=== PATIENT | female | born 1980 | race Caucasian/White ===

== ENCOUNTER 2017-03-07 19:21 | Emergency (ER) | payer MEDICAID ==
[2017-03-07 20:24] VITALS: BP 146/87
--- NOTE | 2017-03-07 20:37 | EDM.PDOC ---
[id number] THROAT Time Seen by Provider: 03/07/17 20:30 Source of Information: Reports: Patient, RN Notes Reviewed History Limitations: Reports: No Limitations - History of Present Illness INITIAL COMMENTS - FREE TEXT/NARRATIVE: Drove self here Chief complaint: Sore throat, worried about strep HPI onset of sore throat yesterday in this 36-year-old female who has children, works full-time in the [employer] office, does computer and phone work. Hurts to swallow and hurts to talk No fever No cough or breathing difficulty No ear pain and no nasal congestion or coryza. None of her children have strep or sore throat currently throat Pain Score (Numeric/FACES): 3 - Related Data Allergies Allergy/AdvReac Type Severity Reaction Status Date / Time amoxicillin [Amoxicillin] Allergy Hives Verified 03/07/17 20:28 azithromycin Allergy Hives Verified 03/07/17 20:28 Home Meds: Home Meds NK [No Known Home Meds] 12/06/13 [History] Past Medical History - History Comment History Comment: Noncontributory Social & Family History - Tobacco Use Years of Tobacco use: 3 ED ROS ENT - Review of Systems Review Of Systems: See Below Constitutional: Denies: Fever, Chills, Weakness HEENT: Reports: Throat Pain. Denies: Ear Pain, Eye Discharge, Eye Pain, Rhinitis, Vision Change Respiratory: Denies: Shortness of Breath, Cough Cardiovascular: Denies: Chest Pain ED EXAM, ENT - Physical Exam Exam: See Below Exam Limited By: No Limitations General Appearance: Alert, Mild Distress Eye Exam: Bilateral Eye: Normal Inspection Ears: Normal External Exam, Normal Canal, Hearing Grossly Normal, Normal TMs Nose: Normal Inspection, Normal Mucousa Mouth/Throat: Normal Lips, Normal Teeth, Hoarse Voice, Pharyngeal Erythema, Throat Swelling, Tonsillar Erythema, Tonsillar Exudates Head: Atraumatic Neck: Supple, Non-Tender. No: Lymphadenopathy (R), Lymphadenopathy (L) Respiratory/Chest: No Respiratory Distress, No Accessory Muscle Use Cardiovascular: Normal Peripheral Pulses, Regular Rate, Rhythm Skin: Warm, Dry Lymphatic: No Adenopathy Course - Vital Signs Last Recorded V/S: Last Vital Signs Temp 37.1 C 03/07/17 20:24 Pulse 98 03/07/17 20:24 Resp 16 03/07/17 20:24 BP 146/87 H 03/07/17 20:24 Pulse Ox 95 03/07/17 20:24 - Orders/Labs/Meds Orders: Active Orders 24 hr Category Date Time Status Orthopedic Treatments [RC] ASDIRECTED Care 03/07/17 20:42 Inactive CULTURE STREP A CONFIRMATION [RM] Stat Lab 03/07/17 20:58 Results STREP SCRN A RAPID W CULT CONF [RM] Stat Lab 03/07/17 20:58 Results - Re-Assessments/Exams Free Text/Narrative Re-Assessment/Exam: 03/07/17 21:04 36-year-old female with sore throat hoarse voice. She does have swollen tonsils with some exudate. Scores 3 by [facility] criteria Strep test done by nurse 03/07/17 21:49 Strep screen negative, culture pending Symptomatic treatment Departure - Departure Time of Disposition: 21:48 Disposition: Home, Self-Care 01 Condition: good Clinical Impression: Acute viral tonsillitis - Discharge Information Instructions: Tonsillitis Referrals: PCP,None [Primary Care Provider] - Forms: ED Department Discharge Additional Instructions: Treatment with throat lozenges Pain medicine such as acetaminophen and ibuprofen or naproxen Strep rapid test was negative "culture, blood culture is pending and you'll be notified within the next 2 days if culture indicates that you do have strep throat Get rechecked if worsening although the infection can last a week or more Rest voice as much as possible - My Orders Last 24 Hours: My Active Orders 03/07/17 20:42 Orthopedic Treatments [RC] ASDIRECTED 03/07/17 20:58 CULTURE STREP A CONFIRMATION [RM] Stat STREP SCRN A RAPID W CULT CONF [RM] Stat - Assessment/Plan Last 24 Hours: My Active Orders 03/07/17 20:42 Orthopedic Treatments [RC] ASDIRECTED 03/07/17 20:58 CULTURE STREP A CONFIRMATION [RM] Stat STREP SCRN A RAPID W CULT CONF [RM] Stat
== END 2017-03-07 21:55 | disposition home or self-care (01) ==
LOC: JP.ED 19:21
DX: J03.80 Acute tonsillitis due to other specified organisms (principal); Z88.1 Allergy status to other antibiotic agents
CPT/HCPCS: 87081; 87430; 99282; 99283

== ENCOUNTER 2019-12-01 19:15 | Emergency (ER) | payer MEDICAID ==
[2019-12-01 19:39] VITALS: BP 123/62; PULSE 86
--- NOTE | 2019-12-01 19:48 | EDM.PDOC ---
ED HPI GENERAL MEDICAL PROBLEM - General Chief Complaint: Upper Extremity Injury/Pain Stated Complaint: FELL HURT WRIST Time Seen by Provider: 12/01/19 19:35 Source of Information: Reports: Patient History Limitations: Reports: No Limitations - History of Present Illness INITIAL COMMENTS - FREE TEXT/NARRATIVE: 39-year-old female slipped on the ice yesterday landing on her left wrist. Intense pain in the wrist with extension of pain down the fourth and fifth fingers and limited range of motion. No other injury. 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: Neurological History: Reports: Migraines Psychiatric History: Reports: Depression Endocrine/Metabolic History: Reports: Diabetes, Gestational - Infectious Disease History Infectious Disease History: Reports: Chicken Pox - Past Surgical History GI Surgical History: Reports: Cholecystectomy Female Surgical History: Reports: Section Endocrine Surgical History: Reports: None Neurological Surgical History: Reports: Other (See Below) Other Neurological Surgeries/Procedures: back surgery Musculoskeletal Surgical History: Reports: Other (See Below) Other Musculoskeletal Surgeries/Procedures:: ACL surgery and meniscous surgery right knee - History Comment History Comment: Noncontributory Social & Family History - Family History Family Medical History: Noncontributory - Tobacco Use Smoking Status *Q: Never Smoker - Caffeine Use Caffeine Use: Reports: None - Recreational Drug Use Recreational Drug Use: No Review of Systems - Review of Systems Review Of Systems: See Below Constitutional: Denies: Fever Respiratory: Reports: No Symptoms Cardiovascular: Reports: No Symptoms Musculoskeletal: Reports: Other (Left wrist pain only) Skin: Denies: Bruising ED EXAM, GENERAL - Physical Exam Exam: See Below Exam Limited By: No Limitations General Appearance: Alert, No Apparent Distress Head: Atraumatic Respiratory/Chest: No Respiratory Distress Extremities: Other (Exam is otherwise limited to the left arm. She has no tenderness around the clavicle shoulder or elbow. There is palpation tenderness and slight swelling around the ulnar and radial aspect of the wrist without deformity or bruising) Course - Vital Signs Last Recorded V/S: Last Vital Signs Temp 96 F L 12/01/19 19:35 Pulse 86 12/01/19 19:35 Resp 15 12/01/19 19:35 BP 123/62 12/01/19 19:35 Pulse Ox 96 12/01/19 19:35 - Orders/Labs/Meds Orders: Active Orders 24 hr Category Date Time Status Wrist Comp Min 3V Lt [CR] Stat Exams 12/01/19 19:44 Taken - Re-Assessments/Exams Free Text/Narrative Re-Assessment/Exam: 12/01/19 19:48 A left wrist x-ray was obtained. 12/01/19 21:32 Left wrist x-ray shows a small step-off of the radial surface but no definite fracture. This was followed with a CT of the wrist which was read as negative. An Gregory wrap was applied to the wrist and she was discharged with a wrist contusion diagnosis. Departure - Departure Time of Disposition: 21:21 Disposition: Home, Self-Care 01 Clinical Impression: Contusion of left wrist, initial encounter - Discharge Information Instructions: Contusion Referrals: Shanika Estrada CNM [Primary Care Provider] - Forms: ED Department Discharge Care Plan Goals: Wrap for comfort, ibuprofen will help and increase activity as tolerated. Recheck next week if not improving satisfactorily after 3 to 5 days. Sepsis Event Note - Evaluation Sepsis Screening Result: No Definite Risk - Focused Exam Vital Signs: Vital Signs Temp Pulse Resp BP Pulse Ox 12/01/19 19:35 96 F L 86 15 123/62 96 Date Exam was Performed: 12/01/19 Time Exam was Performed: 21:32 - My Orders Last 24 Hours: My Active Orders 12/01/19 19:44 Wrist Comp Min 3V Lt [CR] Stat - Assessment/Plan Last 24 Hours: My Active Orders 12/01/19 19:44 Wrist Comp Min 3V Lt [CR] Stat
--- NOTE | 2019-12-01 21:11 | CRLCT ---
INDICATION: Evaluate for fracture. COMPARISON: Left wrist series dated 01 December 2019. TECHNIQUE: Noncontrast CT scan of the left wrist with re-formatted images obtained. FINDINGS: No evidence of acute fracture or dislocation. No muscular or tendinous abnormalities. No other bony or soft tissue abnormalities identified. IMPRESSION: No evidence of acute fracture or dislocation of the left wrist. Dictated by Brian Zavala MD @ 12/01/2019 9:08:33 PM Please note that all CT scans at this facility use dose modulation, iterative reconstruction, and/or weight-based dosing when appropriate to reduce radiation dose to as low as reasonably achievable. Dictated by: Brian Zavala MD @ 12/01/2019 21:08:40 (Electronically Signed)
--- NOTE | 2019-12-02 12:05 | CR ---
Wrist Comp Min 3V Lt CLINICAL HISTORY: Fall, pain FINDINGS: There is no acute fracture or dislocation within the left wrist. There is a lateral longitudinal lucency overlying the distal radius. This is a soft tissue fascial plain Impression: No fracture or dislocation
== END 2019-12-01 21:25 | disposition home or self-care (01) ==
LOC: JP.ED 19:15
DX: S60.212A Contusion of left wrist, initial encounter (principal); Z88.0 Allergy status to penicillin; Z88.1 Allergy status to other antibiotic agents; W01.0XXA Fall on same level from slipping, tripping and stumbling without subsequent striking against object, initial encounter
CPT/HCPCS: 73110-26-LT; 73110-LT; 73200-LT; 99282; 99284-25

== ENCOUNTER 2021-04-17 01:06 | Emergency (ER) | payer MEDICAID ==
[2021-04-17 01:36] VITALS: BP 181/93; PULSE 96
[2021-04-17] MEDS ORDERED: Proparacaine 0.5% Ophth Soln 15 ML Bottle EYELF ONE (01:49)
--- NOTE | 2021-04-17 02:13 | EDM.PDOC ---
ED HPI GENERAL MEDICAL PROBLEM - General Chief Complaint: ENT Problem Stated Complaint: SOMETHING IN LEFT EYE Time Seen by Provider: 04/17/21 01:49 Source of Information: Reports: Patient History Limitations: Reports: No Limitations - History of Present Illness INITIAL COMMENTS - FREE TEXT/NARRATIVE: Chica is a 40-year-old male presenting to the ED for evaluation of a painful, swollen left eye. The patient was in her usual state of health and [place] and got out around 1730 hrs. Around 2200 hrs. she started to develop eye pain and thought maybe she had an eyelash in her eye. She try to get it out, however, the pain continued to worsen to the point where she could not even open her eye. She called her friend who brought her into the ED for evaluation. Is any injury to the eye. Her vision is blurry in the eye. She is photosensitive. 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: Neurological History: Reports: Migraines Psychiatric History: Reports: Depression Endocrine/Metabolic History: Reports: Diabetes, Gestational, Obesity/BMI 30+ - Infectious Disease History Infectious Disease History: Reports: Chicken Pox - Past Surgical History GI Surgical History: Reports: Cholecystectomy Female Surgical History: Reports: Section Endocrine Surgical History: Reports: None Neurological Surgical History: Reports: Other (See Below) Other Neurological Surgeries/Procedures: back surgery Musculoskeletal Surgical History: Reports: Other (See Below) Other Musculoskeletal Surgeries/Procedures:: ACL surgery and meniscous surgery right knee - History Comment History Comment: Noncontributory Social & Family History - Family History Family Medical History: No Pertinent Family History - Tobacco Use Tobacco Use Status *Q: Never Tobacco User - Caffeine Use Caffeine Use: Reports: Coffee - Recreational Drug Use Recreational Drug Use: No ED ROS GENERAL - Review of Systems Review Of Systems: See Below Constitutional: Reports: No Symptoms HEENT: Reports: Eye Pain (Left eye pain, photosensitivityn), Vision Change (Blurred vision) Neurological: Reports: No Symptoms ED EXAM GENERAL W FULL EYE - Physical Exam Exam: See Below Exam Limited By: No Limitations General Appearance: Alert, Anxious, Moderate Distress Eye Exam: Left Eye: Other (Very significant chemosis of the left eye without evidence of foreign body.), Bilateral Eye: EOMI Eyelids: Bilateral: Normal Appearance Conjunctiva & Sclera: Left: Conjunctival Edema Cornea Exam: Left: Normal Appearance, Examined with Flourescein Extraocular Movements: Bilateral: Intact Pupils: Normal Accommodation Pupillary Size: Bilateral: 3 mm Pupillary Reaction: Bilateral: Brisk Neurological: Alert, Oriented, Normal Cognition, No Motor/Sensory Deficits Course - Vital Signs Last Recorded V/S: Last Vital Signs Temp 36.3 C 04/17/21 01:32 Pulse 96 04/17/21 01:32 Resp 18 04/17/21 01:32 BP 181/93 H 04/17/21 01:32 Pulse Ox 100 04/17/21 01:32 - Orders/Labs/Meds Orders: Active Orders 24 hr Category Date Time Status Ketotifen [Ketotifen 0.025% Ophth Soln] Med 04/17/21 02:15 Ordered 0.1 ml EYELF Q12H Meds: Medications Discontinued Medications Generic Name Dose Route Start Last Admin Trade Name Saul PRN Reason Stop Dose Admin Proparacaine HCl 0.1 ml 04/17/21 01:49 04/17/21 01:53 Proparacaine 0.5% Ophth Soln 15 Ml Bottle EYELF 04/17/21 01:50 1 drop ONETIME ONE Administration - Re-Assessments/Exams Free Text/Narrative Re-Assessment/Exam: 04/17/21 02:10 patient has significant chemosis in the left eye. The source of the irritant or allergen is unknown, however, the patient did swim [place] today approximately 5 hours prior to the onset of her symptoms. They was very painful and photosensitive. Fluorescein was instilled and did not show any evidence for corneal abrasion or erosion. The conjunctiva is normally injected but extremely edematous. My plan is to put the patient on Ketotifen 0.25% eyedrops with 1 drop in the left eye twice daily until the edema resolves. There was no evidence of foreign body under either of the lids. Anticipate that this will improve within 24 hours. If continued symptoms, she should follow-up with ophthalmology. Departure - Departure Time of Disposition: 02:13 Disposition: Home, Self-Care 01 Clinical Impression: Allergic conjunctivitis of left eye - Discharge Information Instructions: Allergic Conjunctivitis, Adult, [id number] Referrals: Shanika Estrada CNM [Primary Care Provider] - Care Plan Goals: We are going to put you on Ketotifen eyedrops to help reduce the inflammation in the eye. It is unknown what the offender is, however, if this recurs try to take note of what you are exposed to and see if there is a pattern that seems to trigger this. This is allergic reaction to something you are in contact with causing the swelling of the eye. If not improving I would recommend seeing an segment producer. If worsening turn to the ED for reevaluation. Sepsis Event Note (ED) - Evaluation Sepsis Screening Result: No Definite Risk - Focused Exam Vital Signs: Vital Signs Temp Pulse Resp BP Pulse Ox 04/17/21 01:32 36.3 C 96 18 181/93 H 100 - Problem List & Annotations (1) Allergic conjunctivitis of left eye SNOMED Code(s): 210538932 Code(s): H10.12 - ACUTE ATOPIC CONJUNCTIVITIS, LEFT EYE Status: Acute Priority: Medium Current Visit: Yes - Problem List Review Problem List Initiated/Reviewed/Updated: Yes - My Orders Last 24 Hours: My Active Orders 04/17/21 02:15 Ketotifen [Ketotifen 0.025% Ophth Soln] 0.1 ml EYELF Q12H - Assessment/Plan Last 24 Hours: My Active Orders 04/17/21 02:15 Ketotifen [Ketotifen 0.025% Ophth Soln] 0.1 ml EYELF Q12H
[2021-04-17] MEDS ORDERED: Ketotifen 0.025% Ophth Soln 5 ML Bottle EYELF SCH (02:15)
== END 2021-04-17 02:22 | disposition home or self-care (01) ==
LOC: JP.ED 01:06
DX: H10.12 Acute atopic conjunctivitis, left eye (principal); E66.9 Obesity, unspecified; Z68.43 Body mass index [BMI] 50.0-59.9, adult; Z88.0 Allergy status to penicillin; Z88.1 Allergy status to other antibiotic agents
CPT/HCPCS: 99283; A9270

== ENCOUNTER 2021-10-15 07:15 | Inpatient (IN) | payer MEDICAID ==
[2021-10-15] MEDS ORDERED: cefOXitin 2 GM Vial ONE (07:18)
[2021-10-15] MEDS ORDERED: Neostigmine Methylsulfate 1 MG/ML 5 ML Syringe ONE (07:28)
[2021-10-15] MEDS ORDERED: Ondansetron 4 MG/2 ML SDV ONE (07:28)
[2021-10-15] MEDS ORDERED: fentaNYL 250 MCG/5 ML SDV ONE ×3 (07:28→11:15)
[2021-10-15] MEDS ORDERED: Succinylcholine 200 MG/10 ML MDV ONE (07:28)
[2021-10-15] MEDS ORDERED: Propofol 200 MG/20 ML SDV ONE (07:28)
[2021-10-15] MEDS ORDERED: Rocuronium 50 MG/5 ML Vial ONE ×2 (07:28→11:39)
[2021-10-15] MEDS ORDERED: Dexamethasone 4 MG/ML SDV ONE (07:28)
[2021-10-15] MEDS ORDERED: Glycopyrrolate 0.2 MG/ML 5 ML MDV ONE (07:28)
[2021-10-15] MEDS ORDERED: Scopolamine 1.5 MG Transdermal Patch TOP ONE (08:45)
[2021-10-15] MEDS ORDERED: Acetaminophen 500 MG Tab PO ONE (08:45)
[2021-10-15] MEDS ORDERED: Celecoxib 200 MG Cap PO ONE (08:45)
[2021-10-15] MEDS ORDERED: Dextrose 5%-Lactated Ringers 1,000 ML IV SCH (09:00)
[2021-10-15 09:28] LABS: HEMOGLOBIN A1C 6.8 % (4.5-6.2)
[2021-10-15] MEDS ORDERED: cefOXitin 2 GM in Sodium Chloride 0.9% 50 ML IV ONE (10:00)
[2021-10-15] MEDS ORDERED: Ketamine 500 MG/5 ML MDV IV SCH (10:15)
[2021-10-15] MEDS ORDERED: Ketamine 20 MG in Sodium Chloride 0.9% 19.8 ML IV SCH (10:15)
[2021-10-15] MEDS ORDERED: Labetalol 20 MG/4 ML Syringe ONE (11:38)
[2021-10-15] MEDS ORDERED: Naloxone 0.4 MG/ML SDV ONE (13:35)
[2021-10-15] MEDS ORDERED: Sugammadex Sodium 200 MG/2 ML VIAL ONE (13:36)
[2021-10-15] MEDS ORDERED: hydrOXYzine HCL 100 MG/2 ML SDV IM ONE (13:49)
[2021-10-15] MEDS ORDERED: Glucagon,Human Recombinant 1 MG Vial IM PRN (13:50)
[2021-10-15] MEDS ORDERED: 50% Dextrose in Water 50 ML Syringe IVPUSH PRN (13:50)
[2021-10-15] MEDS ORDERED: Ondansetron 4 MG/2 ML SDV IVPUSH ONE (13:50)
[2021-10-15] MEDS ORDERED: Insulin Lispro 100 Unit/ML 3 ML KwikPen SUBCUT ONE (14:15)
[2021-10-15] MEDS ORDERED: Cyclobenzaprine 10 MG Tab PO PRN (14:55)
[2021-10-15] MEDS ORDERED: hydrOXYzine HCL 100 MG/2 ML SDV IM PRN (15:00)
[2021-10-15] MEDS ORDERED: Labetalol 20 MG/4 ML Syringe IVPUSH PRN (15:00)
[2021-10-15] MEDS ORDERED: HYDROmorphone 0.5 MG/0.5 ML Syringe IVPUSH PRN (15:00)
[2021-10-15] MEDS ORDERED: oxyCODONE 5 MG Tab PO PRN (15:00)
[2021-10-15] MEDS ORDERED: Lactated Ringers 1,000 ML IV SCH (15:00)
[2021-10-15] MEDS ORDERED: HYDROmorphone 1 MG/ML Syringe IV PRN (15:00)
[2021-10-15] MEDS ORDERED: diphenhydrAMINE 50 MG/ML SDV IVPUSH PRN (15:00)
[2021-10-15] MEDS ORDERED: Acetaminophen 500 MG Tab PO PRN (15:00)
[2021-10-15] MEDS ORDERED: traMADol 50 MG Tab PO PRN (15:00)
[2021-10-15] MEDS: Metoclopramide 10 MG/2 ML SDV IVPUSH PRN (15:03)
[2021-10-15] MEDS: MVI, Adult with Vitamin K 10 ML, Thiamine 200 MG, Zinc/Copper/Manganese/Selenium 1 ML i... IV SCH ×4 (16:37)
[2021-10-15] MEDS: Pantoprazole 40 MG Vial IVPUSH SCH (16:41)
[2021-10-15] MEDS: cefOXitin 2 GM in Sodium Chloride 0.9% 50 ML IV SCH ×2 (16:43→23:08)
[2021-10-15] MEDS: Dextrose 5%-Lactated Ringers 1,000 ML IV SCH (16:45)
[2021-10-15] MEDS: Insulin Lispro 100 Unit/ML 3 ML KwikPen SUBCUT SCH ×2 (17:41→23:07)
[2021-10-15] MEDS: Heparin Sodium 5,000 Units/ML Vial SUBCUT SCH (17:45)
[2021-10-15] MEDS: Acetaminophen 500 MG Tab PO SCH (17:48)
[2021-10-15] MEDS: Ondansetron 4 MG/2 ML SDV IVPUSH PRN ×2 (17:58→23:18)
[2021-10-15] MEDS: LORazepam 2 MG/ML SDV IVPUSH PRN (19:52)
[2021-10-16] MEDS: Acetaminophen 500 MG Tab PO SCH (00:31)
[2021-10-16] MEDS: Dextrose 5%-Lactated Ringers 1,000 ML IV SCH (00:59)
[2021-10-16] MEDS ORDERED: Iopamidol 510 MG/ML 50 ML SDV PO ONE (02:47)
[2021-10-16] MEDS: Ondansetron 4 MG/2 ML SDV IVPUSH PRN ×2 (03:28→08:59)
[2021-10-16] MEDS: Metoclopramide 10 MG/2 ML SDV IVPUSH PRN ×2 (03:28→09:38)
[2021-10-16] MEDS: cefOXitin 2 GM in Sodium Chloride 0.9% 50 ML IV SCH ×4 (03:48→22:08)
[2021-10-16] MEDS: Insulin Lispro 100 Unit/ML 3 ML KwikPen SUBCUT SCH ×4 (04:54→22:10)
[2021-10-16] MEDS: Heparin Sodium 5,000 Units/ML Vial SUBCUT SCH ×2 (05:49→17:43)
[2021-10-16] MEDS ORDERED: Acetaminophen 160 MG Tab,Disintegrating PO PRN (07:54)
[2021-10-16] MEDS ORDERED: Lactated Ringers 1,000 ML IV SCH ×2 (08:00→16:00)
[2021-10-16] MEDS: Acetaminophen 160 MG Tab,Disintegrating PO SCH ×2 (08:26→16:19)
[2021-10-16] MEDS: Celecoxib 200 MG Cap PO SCH ×2 (09:02→22:06)
[2021-10-16] MEDS: SCOPOLAMINE PATCH CHECK TOP SCH (09:03)
[2021-10-16] MEDS: LORazepam 2 MG/ML SDV IVPUSH PRN (13:27)
[2021-10-16] MEDS: Ondansetron 4 MG/2 ML SDV IVPUSH SCH ×3 (14:24→22:07)
[2021-10-16] MEDS: Metoclopramide 10 MG/2 ML SDV IVPUSH SCH ×2 (16:10→22:06)
[2021-10-16] MEDS: Pantoprazole 40 MG Vial IVPUSH SCH (16:13)
[2021-10-16] MEDS: MVI, Adult with Vitamin K 10 ML, Thiamine 200 MG, Zinc/Copper/Manganese/Selenium 1 ML i... IV SCH ×4 (16:17)
--- NOTE | 2021-10-16 20:27 | OR ---
DATE OF PROCEDURE: 10/15/2021 SURGEON: Kwabena Carias MD PREOPERATIVE DIAGNOSIS: Morbid obesity. POSTOPERATIVE DIAGNOSES: 1. Morbid obesity. 2. Marked hepatomegaly. 3. Paraesophageal diaphragmatic hernia. OPERATIVE PROCEDURES: Diagnostic laparoscopy with: 1. Laparoscopic duodenal switch (44774). 2. Yunior-Cut needle liver biopsy (72888). 3. Repair of paraesophageal diaphragmatic hernia (88302). ANESTHESIA: General. INDICATIONS FOR PROCEDURE: This is a 41-year-old female presenting with longstanding morbid obesity and increasingly significant comorbidities. After preoperative evaluation and discussion, she wished to proceed with a duodenal switch. Potential risks of procedure including bleeding, infection, leaks from GI tract, staple lines, or anastomosis, problems with bowel obstruction over time as well as possibility of cardiopulmonary, septic, or hemorrhagic complications leading to were discussed, and the patient wishes to proceed. DETAILS OF PROCEDURE: The patient was taken to the operating room. After general endotracheal anesthesia was induced, she was placed in a lithotomy position. A Archer catheter was inserted and the abdomen prepped and draped. 20 cm inferior, 5 cm left of the xiphoid process, transverse incision was made, and the peritoneal cavity entered under direct vision with an Optiview trocar. Bilateral transversus abdominis plane blocks were placed and 6 additional trocars were placed across the upper mid abdomen. The patient was noted to have a quite striking hepatomegaly with liver grossly fatty infiltrated. The Yunior- Cut needle biopsy was obtained from left lobe of the liver. Minimal bleeding from the biopsy site was controlled with electrocautery. At this point, some adhesions between the previous lower midline incision used for a section were made. These were omental adhesions. It was noted that the patient has a fairly significant incisional hernia in the midportion of that incision, but at this point it was wide open and not likely to become incarcerated. Following this, the small bowel was identified at the ileocecal valve and walked back 300 cm. This was seen to come up adequately to the duodenum and was sutured at the omentum below that area to facilitate easy identification later. The patient did have quite a bit of mesenteric and fatty infiltration and it was felt that a simple duodenal ileostomy would be more safe and then converting to a secondary Chidi-en-Y type anastomosis later on. The latter could be done at a later time if necessary. At this point, the liver was retracted anteriorly. One additional trocar needed to be placed for elevation of the liver. The patient noted to have a large size paraesophageal diaphragmatic hernia containing some perigastric fat and gastric fundus. This was reduced and the peritoneum overlying incised and reflected downward. An anterior repair of the diaphragmatic hernia was then accomplished with an 0 Ethibond suture, reinforced with PTFE pledgets. At this point, the omentum was divided beginning in the greater curvature midportion through the highest and posterior short gastric vessels. This resulted in deserosalization of the gastric fundus and the dissection then continued distally dividing the omentum away to a point roughly 4 cm distal to the pylorus. At this point, the sleeve gastrectomy was initiated beginning 6 cm proximal to the pylorus, anterior aspect of the gastric antrum, and the area below the incisura angularis was marked out with electrocautery and 3 additional firings of the PARDEEP black loads accomplished with care taken to avoid overtightening at the incisura angularis. A 40-[place] Citizen chest tube was then passed orally through the length of the esophagus and across the lesser curvature. This was pushed up against the lesser curvature and that served as a template for remainder of the sleeve gastrectomy staple lines, which were accomplished with reinforced black loads. passed on the sides. The gastrectomy staple line was inspected. No significant bleeding or other problems were noted. At this point, the duodenum 4 cm distal to the pylorus was dissected posteriorly and superiorly and then divided with a PARDEEP purple reinforced load with one additional firing of the PARDEEP stapler and the superior aspect of the proximal divided duodenum was then accomplished surrounding the gastroduodenal artery which allowed nice drop down of the duodenum. Stay sutures were then placed between the small bowel 300 cm proximal to the ileocecal valve to the superior and inferior aspects of the divided proximal duodenum with a 3-0 Vicryl stitch and one additional stitch was placed just inferior to the lower stitch to allow manipulation of that area during the anastomosis. An enterotomy was then placed in the duodenum and adjacent jejunum and a 30 mm PARDEEP black load was then placed with one arm in each of those structures and fired. The common opening was then closed after 3 stay sutures were placed between the inferior and superior and middle aspects of the common opening. These were then pulled up, and a PARDEEP purple load was placed underneath these, thus completing the closure of the common opening. The latter closure was reinforced with some 3- 0 Vicryl seromuscular stitch. At this point, fibrin sealant was placed underneath the duodenal ileostomy and along the length of the sleeve gastrectomy staple line focusing on the area of the esophagogastric junction. Omentum was then tacked up over the esophagogastric junction as well. 2 additional stitches were then placed proximal to the duodenal ileostomy pulling the small bowel up against the antrum and just below it to facilitate more distal flow of the ingested food and exiting the stomach. Leak test was accomplished with injection of air into the sleeve gastrectomy while the area was submerged with an antibiotic-containing saline solution. There was good flow of air through the anastomosis. No bubbles were seen at any point along the staple lines or duodenal ileostomy. At this point, the gastric specimen was retrieved through the left lateral trocar site and a Charles-Delgado drain was then placed through the left lateral trocar site and positioned up against the esophagogastric junction, from there up into the splenic fossa. Trocars were sequentially removed, and the peritoneal cavity deflated. Incisions were closed with 4-0 Vicryl skin stitch and there were no complications. The patient was taken to the recovery room in satisfactory condition. Kwabena Carias MD /[id number]
--- NOTE | 2021-10-16 20:45 | PN ---
DATE OF SERVICE: 10/16/2021 The patient is postop day 1 from a laparoscopic duodenal switch along with repair of diaphragmatic hernia. Clinically, she has had quite a bit of nausea overnight but is otherwise doing well. Nausea appeared to be improving this morning. Her upper GI x-ray looked satisfactory. Labs showed creatinine has been bumped up a little bit from 0.88 preoperatively to 1.4. Urine output has been around 750 mL since the surgery, so we will leave the Archer in until midday and make sure and also leave the IV rate running of the LR rather than continuing glucose with that, otherwise maximize activity with pulmonary toilet. Kwabena Carias MD /[id number]
[2021-10-17] MEDS: Acetaminophen 160 MG Tab,Disintegrating PO SCH ×2 (00:16→08:01)
[2021-10-17] MEDS: Ondansetron 4 MG/2 ML SDV IVPUSH SCH ×2 (01:31→05:53)
[2021-10-17] MEDS: Metoclopramide 10 MG/2 ML SDV IVPUSH SCH (04:16)
[2021-10-17] MEDS: cefOXitin 2 GM in Sodium Chloride 0.9% 50 ML IV SCH ×2 (04:17→10:21)
[2021-10-17] MEDS: Insulin Lispro 100 Unit/ML 3 ML KwikPen SUBCUT SCH ×4 (05:21→23:39)
[2021-10-17] MEDS: Heparin Sodium 5,000 Units/ML Vial SUBCUT SCH ×2 (05:53→17:00)
[2021-10-17] MEDS: Celecoxib 200 MG Cap PO SCH ×2 (08:01→20:46)
[2021-10-17] MEDS: SCOPOLAMINE PATCH CHECK TOP SCH (08:02)
[2021-10-17] MEDS ORDERED: hydrOXYzine HCl 25 MG Tab PO PRN (08:22)
[2021-10-17] MEDS ORDERED: Ondansetron 4 MG Tab.DIS PO PRN (08:23)
[2021-10-17] MEDS ORDERED: Lactated Ringers 1,000 ML IV SCH (08:30)
[2021-10-17] MEDS ORDERED: Cyanocobalamin (Vitamin B12) 1,000 MCG/ML SDV IM ONE (09:00)
[2021-10-17] MEDS: Metoclopramide 10 MG Tab PO SCH ×4 (10:20→21:18)
[2021-10-17] MEDS: Acetaminophen 500 MG Tab PO SCH ×2 (10:20→17:00)
[2021-10-17] MEDS: Pantoprazole 40 MG Vial IVPUSH SCH (16:57)
[2021-10-18] MEDS: Acetaminophen 500 MG Tab PO SCH (01:18)
[2021-10-18] MEDS: Insulin Lispro 100 Unit/ML 3 ML KwikPen SUBCUT SCH (04:46)
[2021-10-18] MEDS: Metoclopramide 10 MG Tab PO SCH (04:46)
[2021-10-18] MEDS: Heparin Sodium 5,000 Units/ML Vial SUBCUT SCH (05:40)
[2021-10-18 07:27] VITALS: BP 109/65; PULSE 60
[2021-10-18] MEDS: Celecoxib 200 MG Cap PO SCH (08:44)
[2021-10-18] MEDS: SCOPOLAMINE PATCH CHECK TOP SCH (08:44)
--- NOTE | 2021-10-18 09:11 | CR ---
UGI Limited HISTORY: Postbariatric surgery FINDINGS: Patient swallowed water-soluble contrast. Upright views of the abdomen show no evidence of extravasation or obstruction. There is a surgical drain in the left upper quadrant IMPRESSION: Status post bariatric surgery No extravasation or obstruction seen
--- NOTE | 2021-10-18 11:25 | PN ---
DATE OF SERVICE: 10/17/2021 The patient's nausea appeared to be improving at this point. Plan on sending her home today. We will make sure that oral versions of nausea medications are satisfactory. We will change the Vistaril, Reglan, Zofran all to oral form and then Tylenol in any form which she is able to tolerate. We will have her get in the shower today. She will likely probably be ready for discharge home tomorrow. Kwabena Carias MD /[id number]
--- NOTE | 2021-10-19 07:22 | DISCH ---
ADMISSION DIAGNOSES: 1. Morbid obesity. 2. BMI 47.8. 3. Diabetes type 2. 4. Lumbar spinal stenosis. 5. Maladaptive health behaviors affecting medical condition. DISCHARGE DIAGNOSES: Diagnostic laparoscopy with: 1. Laparoscopic duodenal switch. 2. Yunior-Cut needle liver biopsy. 3. Repair of paraesophageal diaphragmatic hernia. POSTOPERATIVE DIAGNOSES: 1. Morbid obesity. 2. Marked hepatomegaly. 3. Paraesophageal diaphragmatic hernia. Date of procedure, 10/15/2021. Surgeon: Kwabena Carias MD. HISTORY: Chica Jennings is a 41-year-old female with longstanding history of morbid obesity and increasing comorbidities. After preoperative evaluation and discussion of possible risks and possible complications, she wished to proceed with surgical procedure. HOSPITAL COURSE: Chica had no operative complications. On postoperative day #1, her upper GI was normal. She was started on a step 2 gastric bypass diet. She was able to shower. IV rate was decreased. On postoperative day 2, she developed nausea and was started on Reglan 10 mg IV scheduled q.6 and continued with the Zofran. On postop day 3, nausea did subside. Pain was controlled with energy protocol, and she was able to be discharged to home. Vital signs had been stable. She has been up ambulating. Oral intake in the past 24 hours was 1570 and urine output 3200. MICHAEL put out 30 mL. Chica received adequate dietary instruction and postop instructions. PHYSICAL EXAMINATION: GENERAL: Chica Jennings is a pleasant 41-year-old female. VITAL SIGNS: Height is 5 feet 10 inches, weight is 333 pounds, BMI 47.8. TPR 98.5, 83, 18. Blood pressure 134/80. HEENT: Negative. NECK: Supple. HEART: Regular rate and rhythm. LUNGS: Clear. ABDOMEN: Abdominal binder is on. Sutures intact. MICHAEL drain will be removed prior to discharge. EXTREMITIES: Without peripheral edema. DISPOSITION: Discharged to home. CONDITION: Stable and improving. FOLLOWUP APPOINTMENT: Iesha Baldwin PA-C, at [facility] on 10/25/2021 at 10 a.m. HOME MEDICATIONS: 1. Reglan 10 mg p.o. q.6 hours p.r.n. nausea, #10. 2. Zofran ODT 4 mg p.o. q.4 hours p.r.n. nausea. 3. She is to start taking Celebrex 200 mg p.o. b.i.d., #28 were given preoperatively. 4. Tylenol 1000 mg q.8 hours. 5. She is to discontinue taking her metformin for diabetes, but may resume tizanidine 4 mg p.o. t.i.d. p.r.n. muscle spasms. 6. Triamcinolone acetonide 0.1% ointment 1 applicator topical t.i.d. p.r.n. 7. She has a Nexplanon implant in. DIET: Step 2 gastric bypass diet without cereal for 4 weeks until 11/15/2021. Drink 8 to 10 glasses of water a day. ACTIVITY: No lifting greater than 10 pounds for 2 weeks. OTHER ACTIVITY: Walk 6 times daily inside your home. Driving, do not drive for 1 week. May shower. Keep operative site clean and dry. Wear abdominal binder for 2 weeks and as tolerated. Notify provider if any fever, increased pain, swelling, redness, drainage, nausea, vomiting. SPECIAL INSTRUCTION: 1. Use incentive spirometer 10 times every hour while awake for 1 week. 2. Check blood sugars 3 to 4 times a day and record. Bring record of blood sugars to clinic appointment. /[id number]
== END 2021-10-18 09:15 | disposition home or self-care (01) | DRG 621 ==
LOC: EDSTATUS 07:15 → JP.SDS 08:27 → JP.MS 13:40
PROVIDERS: ADMIT Surgery; ATTEND Surgery
PROC: 0D194ZB Bypass Duodenum to Ileum, Percutaneous Endoscopic Approach (ICD-10-PCS; principal; 2021-10-15)
PROC: 0BQT4ZZ Repair Diaphragm, Percutaneous Endoscopic Approach (ICD-10-PCS; 2021-10-15)
PROC: 0FB24ZX Excision of Left Lobe Liver, Percutaneous Endoscopic Approach, Diagnostic (ICD-10-PCS; 2021-10-15)
DX: E66.01 Morbid (severe) obesity due to excess calories (principal); Z68.42 Body mass index [BMI] 45.0-49.9, adult; E11.9 Type 2 diabetes mellitus without complications; M48.061 Spinal stenosis, lumbar region without neurogenic claudication; R16.0 Hepatomegaly, not elsewhere classified; K44.9 Diaphragmatic hernia without obstruction or gangrene; Z90.49 Acquired absence of other specified parts of digestive tract; Z98.890 Other specified postprocedural states; Z88.1 Allergy status to other antibiotic agents
CPT/HCPCS: 36415; 74240; 74240-26; 80053; 82947; 83036; 83735; 83880; 84100; 84703; 85025; 85027; 86850; 86900; 86901; A9270-GY; C9113; J0171; J0330; J0694; J1100; J1170; J1644; J1815; J1815-GY; J2060; J2310; J2405; J2704; J2710; J2765; J2795; J3010; J3410; J3411; J3420; J3490; J7120; J7121; Q9966

== ENCOUNTER 2023-02-16 07:09 | Day surgery (SDC) | payer MEDICAID ==
[~2023-02-16 07:09] MED LIST: Bupivacaine 0.5% 50 ML MDV ONE; Bupivacaine 0.5%/EPINEPHrine 1:200,000 50 ML MDV ONE; Dexamethasone 4 MG/ML SDV ONE; Glycopyrrolate 0.2 MG/ML 5 ML MDV ONE; Lidocaine 1% with EPINEPHrine 1:100,000 50 ML MDV ONE; Meropenem 500 MG SDV ONE; Neostigmine Methylsulfate 1 MG/ML 5 ML Syringe ONE; Ondansetron 4 MG/2 ML SDV ONE; Propofol 200 MG/20 ML SDV ONE; Rocuronium 50 MG/5 ML Vial ONE; Succinylcholine 200 MG/10 ML MDV ONE; fentaNYL 250 MCG/5 ML SDV ONE
[2023-02-16] MEDS ORDERED: Celecoxib 200 MG Cap PO ONE (07:30)
[2023-02-16] MEDS ORDERED: Scopolamine 1.5 MG Transdermal Patch TOP SCH (07:30)
[2023-02-16] MEDS ORDERED: ceFAZolin 2 GM in Sodium Chloride 0.9% 100 ML IV ONE (07:34)
[2023-02-16] MEDS ORDERED: ceFAZolin 2 GM in Premix Bag 1 BAG IV ONE (08:00)
[2023-02-16] MEDS ORDERED: Dextrose 5%-Lactated Ringers 1,000 ML IV SCH (08:15)
[2023-02-16] MEDS ORDERED: Meropenem 500 MG SDV ONE (08:42)
[2023-02-16] MEDS ORDERED: Linezolid 600 MG/300 ML Premix Bag IRR ONE (08:45)
[2023-02-16] MEDS ORDERED: Linezolid 600 MG/300 ML Premix Bag ONE (08:45)
[2023-02-16] MEDS ORDERED: Sodium Chloride 0.9% 10 ML ONE (08:55)
[2023-02-16] MEDS ORDERED: Ketamine 500 MG/5 ML MDV IV SCH (09:00)
[2023-02-16] MEDS ORDERED: Ropivacaine 40 ML, dexAMETHasone 8 MG, EPINEPHrine 0.4 MG, Sodium Chloride 0.9% 37.6 ML NERVRT SCH ×4 (09:00)
[2023-02-16] MEDS ORDERED: Ketamine 20 MG in Sodium Chloride 0.9% 19.8 ML IV SCH (09:00)
[2023-02-16] MEDS ORDERED: fentaNYL 100 MCG/2 ML SDV ONE (09:37)
[2023-02-16] MEDS ORDERED: HYDROmorphone 1 MG/ML Syringe IV PRN (11:00)
[2023-02-16] MEDS ORDERED: HYDROmorphone 0.5 MG/0.5 ML Syringe IVPUSH PRN (11:00)
[2023-02-16] MEDS ORDERED: Cyclobenzaprine 10 MG Tab PO PRN (11:08)
[2023-02-16] MEDS: Dextrose 5%-Lactated Ringers 1,000 ML IV SCH ×2 (11:35→22:52)
[2023-02-16] MEDS ORDERED: Labetalol 20 MG/4 ML Syringe IVPUSH PRN (12:00)
[2023-02-16] MEDS ORDERED: diphenhydrAMINE 50 MG/ML SDV IVPUSH PRN (12:00)
[2023-02-16] MEDS ORDERED: Acetaminophen 500 MG Tab PO PRN (12:00)
[2023-02-16] MEDS ORDERED: hydrOXYzine HCl 50 MG/ML SDV IM PRN (12:00)
[2023-02-16] MEDS ORDERED: Metoclopramide 10 MG/2 ML SDV IVPUSH PRN (12:00)
[2023-02-16] MEDS ORDERED: Pantoprazole 40 MG Vial IVPUSH SCH (12:00)
[2023-02-16] MEDS ORDERED: Ondansetron 4 MG/2 ML SDV IVPUSH PRN (12:00)
[2023-02-16] MEDS ORDERED: traMADol 50 MG Tab PO PRN (12:00)
[2023-02-16] MEDS: SCOPOLAMINE PATCH CHECK TOP SCH (12:28)
[2023-02-16] MEDS: ceFAZolin 2 GM in Premix Bag 1 BAG IV SCH (15:34)
[2023-02-16] MEDS: Acetaminophen 500 MG Tab PO SCH (15:34)
[2023-02-16] MEDS ORDERED: MVI, Adult with Vitamin K 10 ML, Thiamine 200 MG, Zinc/Copper/Manganese/Selenium 1 ML i... IV SCH ×4 (16:00)
[2023-02-16] MEDS: oxyCODONE 5 MG Tab PO PRN (18:17)
[2023-02-16] MEDS: Heparin Sodium 5,000 Units/ML Vial SUBCUT SCH (20:49)
[2023-02-17] MEDS: Acetaminophen 500 MG Tab PO SCH ×2 (00:10→07:31)
[2023-02-17] MEDS: ceFAZolin 2 GM in Premix Bag 1 BAG IV SCH ×2 (00:11→07:29)
[2023-02-17] MEDS: oxyCODONE 5 MG Tab PO PRN ×3 (00:16→11:33)
[2023-02-17] MEDS: Dextrose 5%-Lactated Ringers 1,000 ML IV SCH (06:02)
[2023-02-17] MEDS: Heparin Sodium 5,000 Units/ML Vial SUBCUT SCH (07:30)
[2023-02-17 07:59] VITALS: BP 108/61; PULSE 60
[2023-02-17] MEDS: SCOPOLAMINE PATCH CHECK TOP SCH (08:56)
[2023-02-17] MEDS ORDERED: Celecoxib 200 MG Cap PO SCH (09:00)
[2023-02-18] MEDS ORDERED: Cyanocobalamin (Vitamin B12) 1,000 MCG/ML SDV IM ONE (09:00)
== END 2023-02-17 11:40 | disposition home or self-care (01) ==
LOC: JP.SDS 07:09 → JP.MS 09:50 → JP.SDS 02-17 11:40
PROVIDERS: ATTEND Surgery
DX: K42.0 Umbilical hernia with obstruction, without gangrene (principal); K43.0 Incisional hernia with obstruction, without gangrene; G43.109 Migraine with aura, not intractable, without status migrainosus; E66.01 Morbid (severe) obesity due to excess calories; E11.9 Type 2 diabetes mellitus without complications; F98.9 Unspecified behavioral and emotional disorders with onset usually occurring in childhood and adolescence; K90.9 Intestinal malabsorption, unspecified; Z68.25 Body mass index [BMI] 25.0-25.9, adult; Z88.0 Allergy status to penicillin; Z88.1 Allergy status to other antibiotic agents; Z79.899 Other long term (current) drug therapy
CPT/HCPCS: 44700; 49596; 81025; 88302; A9270; C1781; C9113; J0131; J0171; J0330; J0690; J1100; J1170; J1644; J2020; J2185; J2405; J2704; J2710; J2795; J3010; J3411; J3490; J7121